=== PATIENT | female | born 1995 | race African-American/Black ===

== ENCOUNTER 2017-05-25 05:50 | Emergency (ER) | payer MEDICAID | END 2017-05-25 07:03 | disposition left against medical advice (07) | LOC: ER 06:36 | DX: M25.559 Pain in unspecified hip (principal); Z53.21 Procedure and treatment not carried out due to patient leaving prior to being seen by health care provider ==

== ENCOUNTER 2017-09-23 07:49 | Emergency (ER) | payer MEDICAID ==
[~2017-09-23] VITALS: Ht 162.6 cm; Wt 63.0 kg
[2017-09-23 07:50] VITALS: BP 106/68
[2017-09-23] MEDS ORDERED: ACETAMINOPHEN 325MG TABLET PO ONE (09:00)
== END 2017-09-23 11:20 | disposition home or self-care (01) ==
LOC: ER 07:49
DX: M16.11 Unilateral primary osteoarthritis, right hip (principal); Z96.651 Presence of right artificial knee joint; Z96.641 Presence of right artificial hip joint
CPT/HCPCS: 73502; 99284

== ENCOUNTER 2017-10-05 00:40 | Emergency (ER) | payer MEDICAID ==
[~2017-10-05] VITALS: Ht 160 cm; Wt 73.0 kg
[2017-10-05 00:46] VITALS: BP 112/80
== END 2017-10-05 05:47 | disposition left against medical advice (07) ==
LOC: ER 00:50
DX: M25.551 Pain in right hip (principal); Z59.0 Homelessness; W18.39XA Other fall on same level, initial encounter; Y93.89 Activity, other specified; Y92.89 Other specified places as the place of occurrence of the external cause; Y99.8 Other external cause status
CPT/HCPCS: 36415; 81025; 82947; 82962; 99283

== ENCOUNTER 2018-01-09 16:13 | Emergency (ER) | payer MEDICAID ==
[~2018-01-09] VITALS: Ht 165.1 cm; Wt 53.0 kg
[2018-01-09 16:16] VITALS: BP 102/76
== END 2018-01-09 20:45 | disposition left against medical advice (07) ==
LOC: ER 16:24
DX: Z76.89 Persons encountering health services in other specified circumstances (principal); Z53.21 Procedure and treatment not carried out due to patient leaving prior to being seen by health care provider

== ENCOUNTER 2018-08-20 21:37 | Emergency (ER) | payer MEDICAID ==
[~2018-08-20] VITALS: Ht 162.6 cm; Wt 52.0 kg
[2018-08-20 21:57] VITALS: BP 140/80
== END 2018-08-20 23:50 | disposition left against medical advice (07) ==
LOC: ER 21:37
DX: R68.89 Other general symptoms and signs (principal); Z53.21 Procedure and treatment not carried out due to patient leaving prior to being seen by health care provider

== ENCOUNTER 2018-08-26 12:17 | Emergency (ER) | payer MEDICAID ==
[~2018-08-26] VITALS: Ht 165.1 cm; Wt 58.0 kg
[2018-08-26 17:44] LABS: BASOPHILS % 0.8 % (0.0-2.0); EOSINOPHILS % 0.2 % (0.0-5.0); HEMATOCRIT. 38.1 % (36.0-48.0); HEMOGLOBIN. 12.5 g/dL (12.0-16.0); LYMPHOCYTES % 16.8 % (20.0-50.0); MEAN CORPUSCULAR HEMOGLOBIN 30.4 pg (28.0-32.0); MEAN CORPUSCULAR VOLUME 92.6 fL (81.0-99.0); MONOCYTES % 8.8 % (2.0-8.0); NEUTROPHILS % 73.4 % (40.0-76.0); PLATELET 303 x1000/uL (130-400); RED BLOOD CELL COUNT 4.12 mill/uL (4.2-5.4)
[2018-08-26 17:49] LABS: CHLORIDE 107 mEq/L (98-107)
[2018-08-26 17:53] LABS: ETHANOL BLOOD < 10 mg/dL
[2018-08-26 18:56] LABS: *AMPHETAMINES SCREEN URINE NEGATIVE (NEGATIVE); *BARBITURATES SCREEN URINE NEGATIVE (NEGATIVE); *BENZODIAZEPINES SCREEN URINE NEGATIVE (NEGATIVE); *COCAINE SCREEN URINE NEGATIVE (NEGATIVE); METHADONE URINE SCREEN NEGATIVE (NEGATIVE); OPIATES URINE SCREEN NEGATIVE (NEGATIVE)
[2018-08-26 18:57] LABS: PHENCYCLIDINE URINE SCREEN NEGATIVE (NEGATIVE)
[2018-08-26 19:02] LABS: CANNABINOID URINE SCREEN PRESUMTIVE POSITIVE (NEGATIVE)
[2018-08-27] MEDS ORDERED: POTASSIUM CHLORIDE 20MEQ TABLET SR PO ONE ×2 (08:30→08:57)
[2018-08-27 13:45] VITALS: BP 128/81
== END 2018-08-27 03:53 | disposition left against medical advice (07) ==
LOC: ER 12:17
DX: F23 Brief psychotic disorder (principal); M79.671 Pain in right foot
CPT/HCPCS: 36415; 80053; 80305; 80307; 80329; 81025; 82962; 85025; 93005; 99284; Z7610